=== PATIENT | male | born 1930 | race Caucasian/White ===

== ENCOUNTER 2017-02-19 19:34 | Inpatient (IN) | payer OTHER ==
[~2017-02-19] VITALS: Ht 175.3 cm; Wt 72.1 kg
[~2017-02-19 19:34] MED LIST: ACETAMINOPHEN325 M1 PO; ADULT LOW DOSE81 M1 PO; AGGRENOX1 CAPSULE PO; ALBUTEROL0.63 MG/3 IH; ARICEPT5 MG PO; ASPIR 8181 M1 PO; ASPIRIN E.C.81 M1 PO; ASPIRIN81 M2 PO; Aggrenox PO; Aspirin E.C. PO; Ativan PO; CETAPHIL MOIST473 ML TP; CIPROFLOXACIN250 MG PO; CLOPIDOGREL75 MG PO; COZAAR25 MG PO; CYMBALTA30 MG PO; CYMBALTA60 MG PO; DUONEB 2.5-0.5 M3 ML AEROSOL; DUONEB 2.5-0.5 M3 ML IH; ECOTRIN325 MG PO; FERROUS SULFAT325 MG PO; FLOMAX0.4 M1 PO; FLOMAX0.4 MG PO; LEVAQUIN250 MG PO; LEVAQUIN500 MG PO; LEXAPRO10 MG PO; LIPITOR10 MG PO; LIPITOR5 MG PO; METRONIDAZOLE500 MG PO; MILK OF MAGN PO; NEURONTIN100 MG PO; NORVASC5 MG PO; PLAVIX75 MG PO; Prilosec PO; ROBAFEN CF SYR118 M1 PO; Rocephin IV; SODIUM CHLORIDE1 G1 PO; TRAZODONE HCL50 MG PO; TYLENOL EXTRA500 MG PO; TYLENOL REGULA325 MG PO
[2017-02-19 20:13] LABS: HEMATOCRIT 35.2 % (38.0-50.0); MCH 30.8 PG (29.0-34.0); MCHC 34.1 G/DL (30.0-36.0); MCV 90.3 FL (86-99); PLATELET COUNT 139 K/uL (156-360); RBC DIS.WIDTH-CV 13.4 % (11.8-14.6); RBC DIS.WIDTH-SD 44.1 % (39-53); WHITE BLOOD COUNT 17.5 K/uL (4.1-10.2)
[2017-02-19 20:21] LABS: ALBUMIN 3.6 g/dL (3.2-4.8); CHLORIDE 101 mEq/L (99-109); POTASSIUM 4.2 mEq/L (3.7-5.4); SODIUM 134 mEq/L (136-147)
[2017-02-19 20:24] LABS: GLUCOSE 146 mg/dL (70-99); TOTAL PROTEIN 6.5 g/dL (6.4-8.3)
[2017-02-19 20:27] LABS: ALKALINE PHOSPHATASE 61 IU/L (3-129)
[2017-02-19 20:28] LABS: CREATININE 1.6 mg/dL (0.6-1.3); GFR ESTIMATE (CALCULATED) 44 mL/min/ (58.99-99999)
[2017-02-19 20:29] LABS: AST (GOT) 42 IU/L (2-34); UREA NITROGEN (BUN) 28 mg/dL (9-23)
[2017-02-19 20:30] LABS: ALT (GPT) 21 IU/L (3-49)
[2017-02-19 20:34] LABS: TROP-I INTERPRETATION NEGATIVE; TROPONIN-I 0.05 ng/mL (0.0-0.30)
[2017-02-19] MEDS ORDERED: CALCIUM 600 +1 EAC2 PO (22:44)
[2017-02-19] MEDS ORDERED: ZANTAC300 MG PO (22:45)
[2017-02-19] MEDS ORDERED: TRAZODONE HCL50 MG PO (22:50)
[2017-02-19 23:46] LABS: APPEARANCE CLOUDY ((CLEAR)); BILIRUBIN SMALL; BLOOD LARGE; COLOR AMBER ((YELLOW)); GLUCOSE (STRIP) NEGATIVE; KETONES 5; LEUKOCYTES NEGATIVE; NITRITE NEGATIVE; PROTEIN (STRIP) 100; SPECIFIC GRAVITY 1.043 (1.000-1.030)
[2017-02-19 23:59] LABS: EPITHELIAL CELLS RARE /HPF; MUCUS NONE SEEN /LPF; RED BLOOD CELLS TNTC /HPF (0-5); WHITE BLOOD CELLS 0-5 /HPF (0-5)
[2017-02-20] LABS: BACTERIA 1+ /HPF; UCUL ADDED? YES
[2017-02-20 00:01] LABS: AMORPHOUS URATES CRYSTALS 1+
[2017-02-20 01:00] VITALS: BP 114/66
[2017-02-20 04:08] VITALS: BP 109/56
[2017-02-20 07:16] LABS: ALBUMIN 3.3 G/DL (3.2-4.8); ALKALINE PHOSPHATASE 51 IU/L (3-129); ALT (GPT) 16 IU/L (3-49); AST (GOT) 37 IU/L (2-34); CHLORIDE 104 MEQ/L (99-109); CREATININE 1.3 MG/DL (0.6-1.3); GFR ESTIMATE (CALCULATED) 56 mL/min/ (58.99-99999); GLUCOSE 84 mg/dL (70-99); POTASSIUM 3.9 MEQ/L (3.7-5.4); SODIUM 135 MEQ/L (136-147); TOTAL PROTEIN 5.5 G/DL (6.4-8.3); UREA NITROGEN (BUN) 30 mg/dL (9-23)
[2017-02-20 08:15] VITALS: BP 108/58
[2017-02-20 11:12] VITALS: BP 121/82
[2017-02-20 15:57] VITALS: BP 151/65
[2017-02-20 23:23] VITALS: BP 136/68
[2017-02-21 07:59] VITALS: BP 127/95
[2017-02-21 16:09] VITALS: BP 137/66
[2017-02-21 23:38] VITALS: BP 140/62
[2017-02-22 07:07] VITALS: BP 135/62
[2017-02-22 07:22] LABS: BASOPHIL (%) 0 % (0-1); EOSINOPHIL (%) 0.5 % (0-5); HEMATOCRIT 30.1 % (38.0-50.0); IMMATURE GRANULOCYTE (%) 0.5 % (0.0-0.7); LYMPHOCYTE (%) 12.6 % (15-42); LYMPHOCYTE COUNT 0.5 K/uL (1.0-2.8); MCH 29.9 PG (29.0-34.0); MCHC 33.2 G/DL (30.0-36.0); MCV 89.9 FL (86-99); MONOCYTE COUNT 0.7 K/uL (0-0.8); NEUTROPHIL (%) 69.4 % (45-76); NEUTROPHIL COUNT 2.7 K/uL (1.8-6.4); PLATELET COUNT 132 K/uL (156-360); RBC DIS.WIDTH-CV 13.2 % (11.8-14.6); RBC DIS.WIDTH-SD 43.7 % (39-53); RED BLOOD COUNT 3.35 M/uL (4.00-5.50); WHITE BLOOD COUNT 3.9 K/uL (4.1-10.2)
[2017-02-22 07:45] LABS: CHLORIDE 104 MEQ/L (99-109); GFR ESTIMATE (CALCULATED) > 59 mL/min/ (58.99-99999); GLUCOSE 91 mg/dL (70-99); POTASSIUM 3.7 MEQ/L (3.7-5.4); SODIUM 134 MEQ/L (136-147); UREA NITROGEN (BUN) 16 mg/dL (9-23)
[2017-02-22 10:00] VITALS: BP 173/89
[2017-02-22 15:14] VITALS: BP 160/89
[2017-02-23 00:06] VITALS: BP 145/73
[2017-02-23 07:16] VITALS: BP 170/79
[2017-02-23 15:44] VITALS: BP 168/77
[2017-02-23 23:35] VITALS: BP 168/79
[2017-02-24 08:12] VITALS: BP 198/98
[2017-02-24 15:53] VITALS: BP 133/79
[2017-02-24 23:39] VITALS: BP 169/80
[2017-02-25 07:40] VITALS: BP 142/70
[2017-02-25] MEDS ORDERED: CIPROFLOXACIN500 M1 PO (12:00)
[2017-02-25] MEDS ORDERED: METRONIDAZOLE500 MG PO (12:00)
[2017-02-25 14:54] VITALS: BP 119/62
== END 2017-02-25 17:21 | DRG 378 ==
LOC: EME → EDBD 19:34 → EDOF 22:30 → 3EAST 22:30 → ENRESERV 23:31 → 3EAST 02-20 00:46
PROVIDERS: Emergency Medicine Emergency Medical Services; Internal Medicine
DX: K57.33 Diverticulitis of large intestine without perforation or abscess with bleeding (principal); N17.9 Acute kidney failure, unspecified; G30.9 Alzheimer's disease, unspecified; F02.80 Dementia in other diseases classified elsewhere, unspecified severity, without behavioral disturbance, psychotic disturbance, mood disturbance, and anxiety; E78.5 Hyperlipidemia, unspecified; I25.2 Old myocardial infarction; K21.9 Gastro-esophageal reflux disease without esophagitis; I95.9 Hypotension, unspecified; F32.9 Major depressive disorder, single episode, unspecified; Z85.51 Personal history of malignant neoplasm of bladder; Z87.440 Personal history of urinary (tract) infections; R31.29 Other microscopic hematuria; N40.0 Benign prostatic hyperplasia without lower urinary tract symptoms; Z86.73 Personal history of transient ischemic attack (TIA), and cerebral infarction without residual deficits; R09.02 Hypoxemia; I10 Essential (primary) hypertension; I25.10 Atherosclerotic heart disease of native coronary artery without angina pectoris
CPT/HCPCS: 70450; 71010; 71275; 74177; 80048; 80053; 81003; 83880; 84484; 85025; 85027; 85379; 87040; 87086; 93005; 94760; 94799; 97530 GO; 99202; 99281; 99285; J0456; J1650; J1956; J3486; J7030